=== PATIENT | female | born 2000 | race African-American/Black ===

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

== ENCOUNTER 2025-06-28 16:09 | Emergency (ER) | payer OTHER, SELFPAY | END 2025-06-28 17:32 | LOC: ERS 16:09 | DX: J06.9 Acute upper respiratory infection, unspecified (principal) | CPT/HCPCS: 87428; 99283 ==